=== PATIENT | female | born 1955 | race Caucasian/White ===

== ENCOUNTER 2016-11-01 07:23 | Observation (INO) | payer MEDICARE, OTHER ==
--- NOTE | ~2016-11-01 | HP ---
History And Physical [address] [place]. [address] NAME: TAWANA ESPINOSA : 59 STATUS : ADM IN [facility]#: [id number] AGE: 60 ADM/REG DATE : 11/01/16 MR#: [id number] REPORT SERV DATE: 11/01/16 DICTATED BY: SANIYA SERVIN DATE: 11/01/16 REPORT STATUS : Draft TRANSCRIBED BY: ROSEMARY DATE: 11/01/16 DATE OF ADMISSION: 11/01/2016 ADMITTING DIAGNOSIS: Status post PEG placement for observation. HISTORY AND PHYSICAL: Ms. Espinosa is a very pleasant lady with history of oral malignancy who was seen in the office for evaluation of dysphagia. She has been having trouble swallowing because of an oral malignancy, and she is having radiation and chemo. She is having increasing difficulty swallowing and a PEG was placed in today. She is being admitted post PEG for observation. The PEG was placed today without any difficulty. PAST MEDICAL HISTORY: Hypertension, COPD, history of CVA, diabetes, now oral malignancy, also history of coronary artery disease. PAST SURGICAL HISTORY: Include tonsillectomy and removal of adenoids, cholecystectomy, section, hysterectomy, and placement of cardiac stents. HOME MEDICATIONS: Afeditab, albuterol, alprazolam, aspirin, atorvastatin, baclofen, Plavix which has been held for 4 days, isosorbide, nitroglycerin, insulin, oxybutynin, propranolol, simvastatin, and Topamax. HABITS: Does not drink alcohol but smokes about a pack a day. REVIEW OF SYSTEMS: Negative other than above. PHYSICAL EXAMINATION: GENERAL: She is a fully alert and oriented lady in no distress with stable vital signs. She is status post PEG placement. LUNGS: Reveal good air entry. No rales or rhonchi. CVS: Normal. ABDOMEN: Somewhat tender from the PEG placement. IMPRESSION: PEG placed in this 60-year-old lady with oral cancer. We will admit for observation, case discussed with hospitalist about medical management, especially diabetes etc. and also with Scott my nurse practitioner who was informed that the patient is in the hospital. ASIYA/ROSEMARY Niesha Servin M.D. History And Physical [address] [facility] [place] [place] [id number] NAME: TAWANA ESPINOSA : [birth year] STATUS : ADM IN PAT#: [id number] AGE: 60 ADM/REG DATE : 11/01/16 MR#: [id number] REPORT SERV DATE: 11/01/16 DICTATED BY: SANIYA SERVIN DATE: 11/01/16 REPORT STATUS : Draft TRANSCRIBED BY: ROSEMARY DATE: 11/01/16 / [id number] CC: Vic Lester MD
--- NOTE | ~2016-11-01 | EGD ---
EGD REPORT [facility] [address] 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 Estimated blood loss: Minimal. Procedure: Pre-Anesthesia Assessment: - ASA Grade Assessment: IV - A patient with severe systemic disease that is a constant threat to life. - Prior to the procedure, a History and Physical was performed, and patient medications and allergies were reviewed. The patient's tolerance of previous anesthesia was also reviewed. The risks and benefits of the procedure and the sedation options and risks were discussed with the patient. All questions were answered, and informed consent was obtained. Prior Anticoagulants: The patient has taken aspirin and Plavix (clopidogrel), last doses were 4 days prior to procedure. After reviewing the risks and benefits, the patient was deemed in satisfactory condition to undergo the procedure. After obtaining informed consent, the endoscope was passed under direct vision. Throughout the procedure, the patient's blood pressure, pulse, and oxygen saturations were monitored continuously. The GIF [id number] was introduced through the mouth, and advanced to the second part of duodenum. The upper GI endoscopy was accomplished without difficulty. The patient tolerated the procedure well. Findings: The examined duodenum was normal. Diffuse severe inflammation characterized by adherent blood, congestion (edema) and erythema was found in the stomach. The cardia and gastric fundus were normal on retroflexion. The examined esophagus was normal. Placement of an externally removable PEG with no T-fasteners was EGD REPORT [address] [place]. [address] NAME: THALIA ESPINOSA : [birth year] STATUS : REG [facility]#: [id number] AGE: 60 ADM/REG DATE : 11/01/16 MR#: [id number] REPORT SERV DATE: 11/01/16 DICTATED BY: SANIYA ERWIN DATE: 11/01/16 REPORT STATUS : Draft TRANSCRIBED BY: [facility] DATE: 11/01/16 successfully completed. The external bumper was at the 3.5 cm marking on the tube. Impression: - Normal examined duodenum. - Gastritis. - Normal esophagus. - An externally removable PEG placement was successfully completed. Recommendation: - Admit the patient to hospital karimi for observation. 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 All rights reserved. The codes documented in this report are preliminary and upon piggery worker review may be revised to meet current compliance requirements. JAIME ERWIN MD 11/01/2016 9:15 AM This report has been signed electronically. Number of Addenda: 0 Note Initiated On: 11/01/2016 8:47 AM Scope Withdrawal Time 0 hours 0 minutes 0 seconds [address] [place] [address]
--- NOTE | ~2016-11-01 | CN ---
Consultation Report [facility] [address] [place]. [address] NAME: TAWANA MORALES : 59 STATUS : ADM IN PAT#: [id number] AGE: 60 ADM/REG DATE : 11/01/16 MR#: [id number] REPORT SERV DATE: 11/01/16 DICTATED BY: CAM DEL RIO DATE: 11/01/16 REPORT STATUS : Draft TRANSCRIBED BY: MODL DATE: 11/01/16 CONSULTATIVE NOTE DATE OF CONSULTATION: REASON FOR ADMISSION: Placement of a PEG tube by Dr. Servin. CHIEF COMPLAINT: "I am here for feeding tube as I will not be able to eat after few weeks of chemotherapy and radiation." HISTORY OF PRESENT ILLNESS: A 60-year-old white female with a history of coronary artery disease, status post PCI with MARBIN to LAD October 2008, type 2 diabetes, hypertension, peripheral vascular disease, tobacco abuse, COPD, bipolar 1, recent diagnosis of oral cancer, and morbid obesity, presented today for Dr. Servin to place an elective PEG tube as the patient is currently receiving chemotherapy and radiation treatment by Dr. Chung and Dr. Zuñiga and will unlikely be able to eat after treatments. The patient is actually admitted under Dr. Mina Servin's service and hospitalist was asked to be consulted to help manage her medical issues and diabetes. The patient tolerated the PEG tube placement very well. She has some minimal complaints of abdominal pain currently. Her CBGs have been excellent. She did have 15 units of her typical 30 units of 70/30 this morning. She has been holding her Plavix for several days prior to surgery, otherwise expects to go home and is doing fairly well. REVIEW OF SYSTEMS: Denies any chest pain or shortness of breath. Positive for abdominal pain. Otherwise 10 point systems reviewed and are negative. PAST MEDICAL HISTORY: Includes diabetes, stroke, history of myocardial infarction, leg claudication, type 2 diabetes, hypertension, COPD, and bipolar 1 disorder. PAST SURGICAL HISTORY: Includes gallbladder surgery, , hysterectomy, cardiac stent, tonsillectomy, adenoidectomy, and cataract removal. FAMILY HISTORY: Negative for lung cancer and thyroid cancer. There is cardiovascular disease in her father. SOCIAL HISTORY: The patient is retired and lives at home. History of cigarette smoking. Denies any alcohol use. Admits to some caffeine. ALLERGIES: SULFA CAUSES BLOOD PRESSURE TO DROP AND CODEINE CAUSES ITCHING. MEDICATIONS: Include Requip; Spiriva; Topamax; nifedipine; fish oil; Zofran; Ditropan; Percocet; Lyrica; Compazine; Inderal; Fentanyl patch; Mucinex; NovoLog 70/30 twice a day; Combivent; Monoket; Asmanex; multivitamin; DuoNeb; Xanax; Liam Aspirin; Lipitor 40 mg at Consultation Report [id number] [place]. [address] NAME: TAWANA MORALES : 59 STATUS : ADM IN PAT#: [id number] AGE: 60 ADM/REG DATE : 11/01/16 MR#: [id number] REPORT SERV DATE: 11/01/16 DICTATED BY: CAM DEL RIO DATE: 11/01/16 REPORT STATUS : Draft TRANSCRIBED BY: ROSEMARY DATE: 11/01/16 bedtime; baclofen; Celexa; and Plavix. PHYSICAL EXAMINATION: VITAL SIGNS: Blood pressure is 182/77, sat 93% on room air, temperature is afebrile, respirations are 16, and pulse is 71. GENERAL: She is in no acute distress. Alert and oriented x3. Very pleasant. HEENT: Normocephalic and atraumatic head. Extraocular muscles intact. Oropharynx is clear. NECK: Supple. No JVD. CARDIAC: Regular rhythm. No murmurs, rubs, or gallops. PULMONARY: Clear to auscultation bilaterally. ABDOMEN: Soft, nontender, and nondistended. Positive bowel sounds. There is a newly minted PEG tube placed. EXTREMITIES: Show no clubbing, cyanosis, or edema. NEUROLOGIC: No focal deficits at this time. SKIN: Warm and dry. PSYCHIATRIC: The patient is cooperative. Mood is appropriate. LAB DATA: Labs show glucose of 110. EGD shows gastritis and an externally removable PEG tube that was placed this morning. IMPRESSION: 1. Oral cancer with next radiation treatment tomorrow. 2. Morbid obesity. 3. Insulin-dependent diabetes. 4. Hypertension. 5. Peripheral arterial disease. 6. Coronary artery disease. 7. COPD without exacerbation. 8. Bipolar 1 disorder. PLAN: The plan is to resume her home medications as ordered by Dr. Servin. We will restart her Plavix starting tomorrow. At this time, let us use a level 2 sliding scale insulin as it is unclear how much intake the patient will actually have in the next 24 hours. We will do Accu-Cheks q.a.c. at bedtime. Thank you again for this consult. GUILHERME/ROSEMARY Cam Del Rio MD Consultation Report [address] [address] NAME: TAWANA MORALES : 59 STATUS : ADM IN PAT#: [id number] AGE: 60 ADM/REG DATE : 11/01/16 MR#: [id number] REPORT SERV DATE: 11/01/16 DICTATED BY: CAM DEL RIO DATE: 11/01/16 REPORT STATUS : Draft TRANSCRIBED BY: ROSEMARY DATE: 11/01/16 / [id number] CC: Vic Lester M.D. Benjamin R Nadeau, MD Marcus Wagner, MD
[~2016-11-01 07:23] MED LIST: AFEDITAB60 MG PO; ALBUTEROL0.083 % INH; ASAB PO; ASMANEX100 INH; CELEXA40 MG PO; CHANTIX1; COMBIVENT RESPIM4 GM INH; COMP10B PO; COREG25 PO; DEPAKOT250 PO; DITROPAN XL15 MG PO; DURA50 TOP; FIORICET OR; FISH-EPA1000 MG PO; GEODON60 MG PO; HALF81 PO; HUMALOGMIX SC; INNOPRAN XL120 MG PO; IRON325 MG PO; KEPPRA1000 MG PO; LIOR10 PO; LIPITOR40 PO; LYRICA100 MG PO; MONOKET PO; MUCINEX600 MG PO; MULTIPLE VIT PO; NIFEDICAL XL60 MG PO; NITROSTAT0.4 MG SL; NORCO1 TAB PO; NOVOPENMIX SC; NYS500UDL PO; PERCOCET 10/3251 TAB PO; PLAVIX PO; PR25 PO; PROTONIX PO; REG PO; REMERON45 MG PO; REQUIP1 PO; ROMYCIN OPH; SPIRIVA INH; SYMBICORT 160/41 INH INH; TOPAMAX50 MG PO; ULTRAM50 PO; XANAX1 MG PO; ZOCOR40 PO; ZOFRAN8 PO
== END 2016-11-02 19:37 | disposition home or self-care (01) ==
LOC: DMU 07:23 → 4SO 11:38
PROVIDERS: Internal Medicine Gastroenterology
PROC: 0DH63UZ Insertion of Feeding Device into Stomach, Percutaneous Approach (ICD-10-PCS; principal; 2016-11-01 08:00)
DX: Z43.1 Encounter for attention to gastrostomy (principal); K29.70 Gastritis, unspecified, without bleeding; I25.10 Atherosclerotic heart disease of native coronary artery without angina pectoris; I25.2 Old myocardial infarction; I73.9 Peripheral vascular disease, unspecified; J44.9 Chronic obstructive pulmonary disease, unspecified; G47.33 Obstructive sleep apnea (adult) (pediatric); N18.9 Chronic kidney disease, unspecified; E11.22 Type 2 diabetes mellitus with diabetic chronic kidney disease; I12.9 Hypertensive chronic kidney disease with stage 1 through stage 4 chronic kidney disease, or unspecified chronic kidney disease; F31.9 Bipolar disorder, unspecified; K21.9 Gastro-esophageal reflux disease without esophagitis; F17.210 Nicotine dependence, cigarettes, uncomplicated; F41.9 Anxiety disorder, unspecified; Z88.2 Allergy status to sulfonamides; Z88.8 Allergy status to other drugs, medicaments and biological substances; Z90.49 Acquired absence of other specified parts of digestive tract; Z98.890 Other specified postprocedural states
CPT/HCPCS: 82962; 94640; A9270-GY; G0378; J0690; J1170

== ENCOUNTER 2016-11-18 18:56 | Inpatient (IN) | payer MEDICARE, OTHER ==
--- NOTE | ~2016-11-18 | CN ---
Consultation Report [facility] [address] [place]. [address] NAME: TAWANA MORALES : 59 STATUS : ADM IN [facility]#: [id number] AGE: 60 ADM/REG DATE : 11/18/16 MR#: [id number] REPORT SERV DATE: 11/19/16 DICTATED BY: DATE: REPORT STATUS : Draft TRANSCRIBED BY: MODL DATE: 11/19/16 NEUROLOGY CONSULTATION DATE OF CONSULTATION: 11/19/2016 REASON FOR CONSULT: Anoxic encephalopathy. HISTORY OF PRESENT ILLNESS: This is a 60-year-old female with recent diagnosis of oral cancer, was noted to collapsed at home require CPR as well as intubation in the emergency department. Post intubation the patient was noted to have persistent hypothermia, required patient to be placed in the prone position. The patient was placed on hypothermia protocol with the patient requiring pressor resuscitation fentanyl as well as paralytics turned off this morning and the patient has not noted to have any spontaneous movement or any purposeful movement at the time of evaluation. No myoclonus was otherwise observed. 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 ALLERGIES: THE PATIENT WAS NOTED TO HAVE ALLERGY TO SULFA MEDICATION AND CODEINE. SOCIAL HISTORY: The patient does have ongoing tobacco usage but no history of drinking or illicit drug usage. FAMILY HISTORY: Significant for breast cancer and colon cancer. REVIEW OF SYSTEMS: Unable to be obtained secondary to her current mental status. MEDICATIONS: At the time of evaluation, her hospital medications consist of aspirin; Brovana; Caltrate; Celexa; Ditropan; DuoNeb; Habitrol; heparin; vancomycin; Lipitor; magnesium; NovoLog; potassium; Plavix; Protonix; Pulmicort; Requip; Solu-Cortef; Solu- Medrol; Topamax; vitamin B12; vitamin D; and Zosyn. The patient is also on Levophed drip at the time of evaluation. PHYSICAL EXAMINATION: VITAL SIGNS: The patient was noted to have T-max of 98.5, heart rate of 51 to 69, respirations of 10 to 18, and blood pressure of 98 to 106 over 56 to 63. GENERAL: The patient is well developed, well nourished, in no acute distress. CARDIOVASCULAR: Examination was unable to be performed. PULMONARY: Clear to auscultation bilaterally. Consultation Report [facility] [address] [address] NAME: TAWANA MORALES : 59 STATUS : ADM IN PAT#: [id number] AGE: 60 ADM/REG DATE : 11/18/16 MR#: [id number] REPORT SERV DATE: 11/19/16 DICTATED BY: DATE: REPORT STATUS : Draft TRANSCRIBED BY: MODL DATE: 11/19/16 NEUROLOGIC: The patient was lying in the prone position, as a result, a neurological examination was difficult to perform. The patient is also currently undergoing hypothermia protocol. Pupil was noted to be minimally reactive. Horizontal eye movement was difficult to observe. The patient somewhat demonstrated no coughing response and was noted to have no spontaneous movement. No withdrawal or grimace or posturing to noxious stimulation. No myoclonus was otherwise observed. DATA: At the time of evaluation, the patient was noted to have white blood cell count of 4.1, hemoglobin of 10.8, hematocrit of 32.5, and platelet count of 113. Chemistry panel: Sodium of 134, potassium of 4.2, chloride 99, bicarb 26, BUN of 39, creatinine of 1.78, glucose of 167, calcium of 8.0, magnesium 2.8, procalcitonin of 127.67, and lactate level 2.7. ABG demonstrated pH of 7.34, pCO2 of 40, PO2 of 77, bicarb of 21.1, and O2 saturation of 94.3. CT scan of the brain was obtained on hospital admission. CT scan of the brain demonstrated posterior fossa cerebellar hypodensity, concern for possible anoxic brain injury. IMPRESSION: Anoxic brain injury. Unable to perform reliable neurological examination secondary to the patient lying in the prone position for respiratory and confusion purposes. The patient is also currently undergoing hypothermia protocol. The patient's sedation as well as paralytics was turned off on the morning of hospital evaluation and the patient so far has not had any spontaneous motor movements. EEG in the morning. We are recommending to continue holding sedation as well as paralytics. When the patient's condition is more stabilize, may consider repeat CT scan of the brain for re-evaluation. RECOMMENDATIONS: 1. EEG in the morning. 2. Hold sedation and paralytics. 3. Prognosis guarded. 4. When the patient's condition is more stabilized, may consider repeat CT scan of the brain for re-evaluation. CCH/MODL Dipak Wagner MD / [id number] CC: Tuan Welch MD
--- NOTE | ~2016-11-18 | OP ---
Record Of Operation [facility] [address] [place]. [address] NAME: TAWANA MORALES : 59 STATUS : ADM IN PAT#: [id number] AGE: 60 ADM/REG DATE : 11/18/16 MR#: [id number] REPORT SERV DATE: 11/19/16 DICTATED BY: TUAN HERNANDEZ DATE: 11/19/16 REPORT STATUS : Draft TRANSCRIBED BY: MODL DATE: 11/19/16 DATE OF PROCEDURE: 11/18/2016 12:00:00 AM PROCEDURE: Central line insertion. PREOPERATIVE DIAGNOSIS: Shock. POSTOPERATIVE DIAGNOSIS: Shock. PROCEDURE NOTE: The patient's left IJ position was visualized with ultrasound, she had a good target, we then prepped and draped the left IJ in standard position. Using ultrasound guidance, we were able to insert the finder needle into the left IJ and instill the guidewire in this space. We then removed the needle and using ultrasound guidance, we noticed that the guidewire was within the left IJ and not in the artery. We then dilated the tract. We then placed the triple-lumen catheter which was already prepped into the site. We had return venous blood from all three ports and this was secured. Postprocedure chest x-ray showed the line in good position and no pneumothorax. ALOKQ/ROSEMARY Tuan Hernandez MD / [id number] CC: Tuan Hernandez MD
--- NOTE | ~2016-11-18 | DS ---
Discharge Summary [id number] [facility] [place]. [address] NAME: TAWANA MORALES : 59 STATUS : DIS IN PAT#: [id number] AGE: 60 ADM/REG DATE : 11/18/16 MR#: [id number] REPORT SERV DATE: 12/29/16 DICTATED BY: SKY HERNANDEZ DATE: 12/28/16 REPORT STATUS : Draft TRANSCRIBED BY: MODL DATE: 12/28/16 ADMISSION DATE: 11/18/2016 DISCHARGE DATE: 11/19/2016 ADMISSION DIAGNOSES: Acute respiratory failure, status post arrest, hyperkalemia, encephalopathy, lactic acidosis, septic shock, diabetes, oral cancer. DISCHARGE DIAGNOSES: Respiratory failure, ARDS, severe atelectasis, cardiac arrest, septic shock, acute kidney injury, coronary artery disease, COPD, . HOSPITAL COURSE: The patient was admitted to the hospital on 11/18/2016, she was seen in the emergency room, and the patient had significant hypoxia with a prolonged arrest of around 40 minutes. The patient was started on hypothermia protocol. In the emergency room, we attempted to get the patient's oxygenation improved, however, she failed APRV, we were able to conduct a CT scan and showed severe dependent consolidation, we moved her up to the intensive care unit and it seems that proning actually help this patient's oxygenation, however, the patient continued to have septic shock, hyperkalemia, and failure to thrive. Neurology was consulted and thought that the patient had an anoxic brain injury. We had multiple family discussions that she had a prolonged pre-hospital arrest and prolonged hypoxia in the emergency room which was not amenable to standard therapy outside of proning. It was noted that the patient had ongoing deterioration after coming up to the intensive care unit, she was seen by Dr. Doshi and the patient had worsening hypoxia and hypotension, family felt that no escalation of care is the patient's belief. The patient then had further deterioration and at 2106 hours on 11/19/2016 for the above-named disease processes. HFQ/MODL Sky Hernandez MD / [id number] CC: Sky Hernandez MD
--- NOTE | ~2016-11-18 | HP ---
History And Physical [place] [id number] [facility] [place]. [address] NAME: TAWANA ESPINOSA : 59 STATUS : ADM IN [facility]#: [id number] AGE: 60 ADM/REG DATE : 11/18/16 MR#: [id number] REPORT SERV DATE: 11/19/16 DICTATED BY: TUAN HERNANDEZ DATE: 11/19/16 REPORT STATUS : Draft TRANSCRIBED BY: MODL DATE: 11/19/16 DATE OF ADMISSION: 11/18/2016 ADMISSION DIAGNOSES: Acute respiratory failure, status post arrest; shock; hyperkalemia. CHIEF COMPLAINT: Unable to obtain due to the patient's current medical status. HISTORY OF PRESENT ILLNESS: Mrs. 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 She has been on chemotherapy and radiation since the end of September. Family states that she has been slowly getting weaker. Especially over the last couple of days, they have noticed that she has become weak, her mental status over the last 48 hours has also deteriorated. She has chronic wheezing, however, they have noticed for the last couple of days her wheezing has been worse. She has been having no chest pain. She was at home and they noticed that today she was especially weak. She got up to go to the bathroom and was essentially found down in the bathroom. This was a short time interval as the family was around her. They started CPR immediately and called 911. She had around 15 minutes of CPR until the EMS came. At that time, she received another 15 to 20 minutes of CPR before they had return of spontaneous circulation. They also intubated her in the field and brought her to the emergency room. Shortly after coming to the emergency room, it was noted that she was significantly hyperkalemic and bradycardic. This was treated medically, and she had return of a tachycardic heart rate of around 105. I was then called, and the patient was seen in the emergency room. She was getting resuscitated with regard to life support and adjustment of her ventilator as she was acidotic upon my arrival. We placed a central line and discussed the case with the family. Around one hour later as she was waiting for an ICU bed, I received a phone call that the patient's oxygenation has deteriorated. At that time, it was noted early on admission even with 100% FiO2, the patient's oxygen saturation at that time was around 89. However, on the blood gas, it was 76. We tried APRV, however, the RT staff switch her to pressure control ventilation as her oxygen saturations dropped into the 50s. We then attempted pressure control ventilation; however, her oxygen saturation dropped into the 30s. We then switched to APRV, we had family discussions as her oxygen saturation was 30% on the monitor. We then noticed that she was significantly cyanotic, as there has been an acute change, we took her to the CT scan in which we did not find a pulmonary embolus. Our concern is that she had a major pulmonary embolus. She had bilateral aspiration appearing pneumonia. We then transferred her to the intensive care unit, and was promptly placed on prone position. Hemodynamically, the patient is on pressors, we started Solu-Cortef as she has been on chemotherapy and concern for recent prednisone administration. The family has been updated as she has been quite ill with resuscitative efforts, hypoxia, hypotension, and acidosis. We also had a long discussion of whether to go forward with hypothermia protocol. In an attempt to give her the best chance of neurologic recovery, it was felt that we will give her a chance with hypothermia protocol. The family has all been updated to the grave situation in that she has essentially not had a quick rebound of her vital signs despite maximum life support. 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 [address] NAME: TAWANA ESPINOSA : 59 STATUS : ADM IN [facility]#: [id number] AGE: 60 ADM/REG DATE : 11/18/16 MR#: [id number] REPORT SERV DATE: 11/19/16 DICTATED BY: TUAN HERNANDEZ DATE: 11/19/16 REPORT STATUS : Draft TRANSCRIBED BY: MODCharles DATE: 11/19/16 status post stent; coronary artery disease, status post stent; history of deep vein thromboses; history of seizure disorder. MEDICATIONS: Family could not remember the medications, currently pharmacy is obtaining those. ALLERGIES: THE PATIENT IS ALLERGIC TO SULFA, CODEINE WHICH CAUSES ITCHING. SOCIAL HISTORY: The patient lives with her son, she has been smoking since her teenage years and continues to smoke. Family states that no one will be able to get her to stop smoking. She is not drinking and does not use any illicit drug use. FAMILY HISTORY: The patient's mother had breast cancer, father had colon cancer, other sister has had colon cancer. Other family members with cancer history too. REVIEW OF SYSTEMS: Unable to obtain review of systems due to the patient's current medical status. PHYSICAL EXAMINATION: VITAL SIGNS: Currently, the patient is hypothermic due to hypothermia protocol, heart rate initially was bradycardic, went up to 105, now currently around 63. Oxygen saturation, currently oxygen saturation is 46%. Blood pressure currently systolic greater than 100, on Levophed. GENERAL: The patient is acutely ill, cyanotic appearing. HEENT: No mediastinal lymphadenopathy. PULMONARY: Decreased breath sounds bilaterally, and significant wheezing bilaterally. CARDIAC: Regular rate, no murmurs, distant heart sounds. ABDOMEN: The patient has a PEG tube, no bowel sounds, abdomen is not distended. EXTREMITIES: No lower extremity edema, peripheral cyanosis is noted, pulses are thready. Capillary refill is not adequate. LABORATORY EXAMINATION: White blood cell count 4.9, hemoglobin 8.5, platelet count 118, INR 1.2, initial potassium was 7.2, current potassium is 5.5. Creatinine 1.66, BUN 29, troponin 0.22, arterial blood gas initially showed significant acidosis which is now improved from a hypercapnia stand point, however, hypoxia has worsened. Urinalysis shows a significant UTI. IMAGING DATA: Initial chest x-ray shows bilateral infiltrates, cardiomegaly. CT scan of the lungs show no significant pulmonary emboli, however, there is a striking bilateral consolidation and small right pleural effusion. She is perfusing her pneumonia and atelectasis. ASSESSMENT AND PLAN: Mrs. Espinosa is an unfortunate 60-year-old female with a past medical history noted above, who presented after an arrest, clearly has encephalopathy, she has a recent cancer history, she has been getting aggressive life support and in the emergency room has had continuous decline. Upon transferring her to the intensive care unit, she had significant worsening in her hypoxia. Current problems are below: 1. Status post arrest: At this moment in time, it is unclear exactly which her arrest was, History And Physical [place] [id number] [facility] [place]. [address] NAME: TAWANA ESPINOSA : 59 STATUS : ADM IN PAT#: [id number] AGE: 60 ADM/REG DATE : 11/18/16 MR#: [id number] REPORT SERV DATE: 11/19/16 DICTATED BY: TUAN HERNANDEZ DATE: 11/19/16 REPORT STATUS : Draft TRANSCRIBED BY: MODL DATE: 11/19/16 she was down for at least 40 minutes prior to having return of spontaneous circulation. After long discussion with the family, we are starting hypothermia protocol. EKG shows no findings of ischemia, there is a mild troponin elevation. We will check a CK level to make sure there is no rhabdomyolysis and a urine drug screen. 2. Encephalopathy: The patient does have a history of seizures, however, currently no seizure activity is noted, family states that she has not had any seizures in quite some time. This is most likely an anoxic brain injury. CT scan of the brain was obtained in the emergency room. At this moment in time, we will have Neurology evaluate the patient in the morning. 3. Hypoxic respiratory failure: This is secondary to bilateral lower lobe infiltrates which are dense consolidation, most likely aspiration. She is on APRV, oxygenation has continued to decline. There was about 45 minutes of severe hypoxia in the emergency room in which we attempted APRV, had family discussions, and attempted to stabilize the patient to get her to the CT scan. At this moment in time, she has been started on azithromycin and Rocephin. Again, this looks more of an aspiration type rather than a primary pneumonia. We will continue mechanical ventilation and prone ventilation. 4. Hyperkalemia: This may be the initial inciting event which made the patient collapse, go into an arrest, and get aspiration. Family states that she has been having problems with hyperkalemia in the past. They do not exactly know what this is all about. However, her kidney function is mildly worse, however, her hyperkalemia is out of the proportion to the degree of which she has kidney failure. At this moment in time, the patient is getting frequent BMP check, IV fluids. 5. Lactic acidosis and shock: Unclear of the etiology, potentially hyperkalemia and a urinary tract infection. We will check a cortisol, we have started her on Solu-Cortef, and the patient is currently on Levophed. 6. Septic shock: The patient clearly has an aspiration pneumonia, urinary tract infection, we will attempt to obtain cultures, have started her on Rocephin and azithromycin, will check a flu test, strep pneumonia and Legionella. 7. Diabetes: We will start insulin sliding scale, continue home medications. 8. Chronic obstructive pulmonary disease: We will continue bronchodilator protocol. 9. Oral cancer: Family states that this is an aggressive tumor, we will notify Hematology/Oncology, the patient is most likely not a current chemo candidate until she has improvement in her overall status. 10.FEN: At this moment in time, the patient is n.p.o. 11.Goals of care: We had multiple goals of care discussions with the family, at this moment in time, they would like to give her a chance, however, if she were to have another arrest, family felt that it was not within the patient's best interest to undergo a resuscitative effort. They are aware of the worsening of her condition despite medical therapy. 12.Critical care time: 120 minutes, this is in addition to the time of procedures. HFQ/ROSEMARY Tuan Hernandez MD History And Physical [address] [address] NAME: TAWANA ESPINOSA : 59 STATUS : ADM IN [facility]#: [id number] AGE: 60 ADM/REG DATE : 11/18/16 MR#: [id number] REPORT SERV DATE: 11/19/16 DICTATED BY: TUAN HERNANDEZ DATE: 11/19/16 REPORT STATUS : Draft TRANSCRIBED BY: MODL DATE: 11/19/16 / [id number] CC: Tuan Hernandez MD
[2016-11-18 19:17] LABS: BE (BASE EXCESS) -6.7 MEQ/L (0 +/- 2.5); HCO3 (ACTUAL BICARBONATE) 21.8 MEQ/L (23-27); HEMOBLOGIN CONTENT 9.1 G/DL (12-16); INSTRUMENT SERIAL # 8087; METHEMOGLOBIN 0.3 % (0-3); MODE CMV; O2 CONTENT 9.5 VOL% (18-24); PCO2 (CO2 TENSION) 61 MMHG (35-45); PO2 (O2 TENSION) 49 MMHG (79-93); SAMPLE Arterial; TIDAL VOLUME 500 ML; pH 7.17 (7.37-7.43)
[2016-11-18 19:53] LABS: BASOPHILS 0.2 %; BASOPHILS ABSOLUTE 0.01 10/3/uL (0.0-0.16); EOSINOPHILS 0 %; IMMATURE GRANULOCYTES 0.4 %; LYMPHOCYTES ABSOLUTE 0.44 10/3/uL (0.67-4.30); MEAN CORPUS HGB CONC 32.2 g/dL (32.0-36.0); MEAN CORPUSCULAR HEMOGLOB 31.5 pg (26.0-34.0); MEAN CORPUSCULAR VOLUME 97.8 fL (80-100); MEAN PLATELET VOLUME 9.2 fL (9.2-13.0); MONOCYTES 0.4 %; MONOCYTES ABSOLUTE 0.02 10/3/uL (0.21-1.20); NEUTROPHILS ABSOLUTE 4.41 10/3/uL (2.02-8.40); RBC DISTRIBUTION WIDTH 16.5 % (12.0-16.0)
[2016-11-18 19:58] LABS: ER CBC TAT 0 Hrs 11 Mins; HEMATOCRIT 26.4 % (36.0-48.0); HEMOGLOBIN 8.5 g/dL (12.0-16.0); IMMATURE GRANULOCYTES ABSOLUTE 0.02 10/3/uL (0.0-0.11); MANUAL DIFF NO %; PLATELET COUNT 118 10/3/uL (150-400); WHITE BLOOD CELLS 4.9 10/3/uL (4.5-10.5)
[2016-11-18 20:01] LABS: ASCORBIC ACID (UR NOT ORDER) 40 (NEG); BILIRUBIN, URINE NEGATIVE (NEG); ER URINALYSIS TAT 0 Hrs 00 Mins; KETONE, URINE NEGATIVE (NEG); LEUKOCYTE ESTERASE(NOT OR LARGE (NEG); NITRITE (URINE) NEG (NEG)
[2016-11-18 20:04] LABS: WBC (NOT ORDERED) (RFLEX) > 182 (0-5)
[2016-11-18 20:10] LABS: CO2 (CARBON DIOXIDE) 24 MMOL/L (24-34); CREATININE 1.66 MG/DL (0.55-1.02); GFR AFRICAN AMERICAN 39 ML/MIN (>=60); GFR NON AFRICAN AMERICAN 34 ML/MIN (>=60); POTASSIUM, SERUM 5.5 MMOL/L (3.5-5.3)
[2016-11-18 20:11] LABS: BUN (BLOOD UREA NITROGEN) 29 MG/DL (6-23); CALCIUM, SERUM 7.7 MG/DL (8.5-10.4); CHEST PAIN PROFILE TAT 0 Hrs 24 Mins; CHLORIDE, SERUM 94 MMOL/L (96-112); GLUCOSE, SERUM 307 MG/DL (60-99); SODIUM, SERUM 131 MMOL/L (135-148); TROPONIN I 0.09 NG/ML (<0.05)
[2016-11-18 20:20] LABS: ANISOCYTOSIS 1+ (5-10/OIF) (0-5/OIF); BAND NEUTROPHILS 1 %; ER DIFF TAT 0 Hrs 33 Mins; LYMPHOCYTES 7 %; LYMPHOCYTES ABSOLUTE (CALC) 0.34 10/3/uL (0.67-4.30); NEUTROPHILS ABSOLUTE (CALC) 4.56 10/3/uL (2.02-8.40); SEGMENTED NEUTROPHIL (0) 92 %; TOTAL NUCLEATED CELLS 100
[2016-11-18 20:22] LABS: PLATELET ESTIMATE SLT DEC (ADEQUATE)
[2016-11-18 20:23] LABS: OVALOCYTES 1+ (3-10/OIF) (0-2/OIF)
[2016-11-18 20:24] LABS: POIKILOCYTOSIS 1+ (5-10/OIF) (0-5/OIF)
[2016-11-18] MEDS ORDERED: NITROSTAT0.4 MG SL (20:42)
[2016-11-18] MEDS ORDERED: NOVOLOGMIX SC ×2 (20:45)
[2016-11-18] MEDS ORDERED: NOVOLOG SC (20:45)
[2016-11-18] MEDS ORDERED: GAVISCON LIQUID PO (20:47)
[2016-11-18] MEDS ORDERED: CYANO1000T PO (20:47)
[2016-11-18] MEDS ORDERED: VITAMIN D1000 UNI1 PO (20:48)
[2016-11-18] MEDS ORDERED: MAGOX4 PO (20:48)
[2016-11-18] MEDS ORDERED: BALANCED B PO (20:48)
[2016-11-18] MEDS ORDERED: CALTRAT600 PO (20:48)
[2016-11-18] MEDS ORDERED: T PO (20:49)
[2016-11-18] MEDS ORDERED: PROVHFA INH (20:49)
[2016-11-18 20:59] LABS: INTERNATIONAL NORMAL RATI 1.2 UNITS (-); PARTIAL THROMBO TIME 31.1 SEC (22.5-37.2)
[2016-11-18 21:00] LABS: PROTIME (NOT ORD) 14.8 SEC (12.0-14.5)
[2016-11-18 21:47] LABS: INFLUENZA A SCREEN NEGATIVE (NEGATIVE); INFLUENZA B SCREEN NEGATIVE (NEGATIVE)
[2016-11-18 22:36] LABS: ALLENS TEST Pos; BE (BASE EXCESS) -1.2 MEQ/L (0 +/- 2.5); CARBOXYHEMOGLOBIN 2.2 % (0-3); HCO3 (ACTUAL BICARBONATE) 26.4 MEQ/L (23-27); HEMOBLOGIN CONTENT 11.1 G/DL (12-16); INSTRUMENT SERIAL # 8087; METHEMOGLOBIN 0.3 % (0-3); MODE PCV; O2 CONTENT 11.2 VOL% (18-24); OPERATOR ID 32193; PCO2 (CO2 TENSION) 58 MMHG (35-45); PO2 (O2 TENSION) 43 MMHG (79-93); PRESSURE SUPPORT 30 cm.H2O; SAMPLE Arterial; pH 7.27 (7.37-7.43)
[2016-11-19 00:23] LABS: BE (BASE EXCESS) -4.2 MEQ/L (0 +/- 2.5); HCO3 (ACTUAL BICARBONATE) 20.7 MEQ/L (23-27); INSTRUMENT SERIAL # 35151; PCO2 (CO2 TENSION) 37 MMHG (35-45); PO2 (O2 TENSION) 37 MMHG (79-93); pH 7.36 (7.37-7.43)
[2016-11-19 00:24] LABS: ALLENS TEST Pos; HEMOBLOGIN CONTENT 10.6 G/DL (12-16); MODE APRV; O2 CONTENT 10.4 VOL% (18-24); OPERATOR ID 35190; SAMPLE Arterial
[2016-11-19 02:33] LABS: MEAN CORPUS HGB CONC 33.5 g/dL (32.0-36.0); MEAN CORPUSCULAR HEMOGLOB 31.5 pg (26.0-34.0); MEAN PLATELET VOLUME 9.3 fL (9.2-13.0); NUCLEATED RED BLOOD CELLS 1.2 /100WBC (0-0); PLATELET COUNT 121 10/3/uL (150-400)
[2016-11-19 02:36] LABS: HEMOGLOBIN 10.4 g/dL (12.0-16.0); MANUAL DIFF YES %; MEAN CORPUSCULAR VOLUME 93.9 fL (80-100); WHITE BLOOD CELLS 1.6 10/3/uL (4.5-10.5)
[2016-11-19 02:44] LABS: A/G RATIO 0.6 (0.7-1.9); ALBUMIN 1.9 G/DL (3.5-5.0); ALKALINE PHOSPHATASE 211 U/L (45-117); CALCIUM, SERUM 7.8 MG/DL (8.5-10.4); CHLORIDE, SERUM 96 MMOL/L (96-112); CO2 (CARBON DIOXIDE) 26 MMOL/L (24-34); CREATININE 1.64 MG/DL (0.55-1.02); GFR AFRICAN AMERICAN 40 ML/MIN (>=60); GFR NON AFRICAN AMERICAN 34 ML/MIN (>=60); GLOBULIN 3.4 G/DL (2.5-4.1); PHOSPHORUS, SERUM 3.6 MG/DL (2.5-4.5); SGOT(AST) 195 U/L (5-40); SGPT(ALT) 196 U/L (5-65); SODIUM, SERUM 134 MMOL/L (135-148); TOTAL BILIRUBIN 0.6 MG/DL (0-1.2); TOTAL PROTEIN 5.3 G/DL (6.0-8.5)
[2016-11-19 02:45] LABS: BUN (BLOOD UREA NITROGEN) 36 MG/DL (6-23); GLUCOSE, SERUM 205 MG/DL (60-99); POTASSIUM, SERUM 4.1 MMOL/L (3.5-5.3)
[2016-11-19 02:46] LABS: TROPONIN I 0.38 NG/ML (<0.05)
[2016-11-19 02:54] LABS: LYMPHOCYTES 10 %; LYMPHOCYTES ABSOLUTE (CALC) 0.16 10/3/uL (0.67-4.30); MONOCYTES 1 %; NEUTROPHILS ABSOLUTE (CALC) 1.44 10/3/uL (2.02-8.40); TOTAL NUCLEATED CELLS 10
[2016-11-19 02:55] LABS: BAND NEUTROPHILS 9 %; PLATELET ESTIMATE SLT DEC (ADEQUATE); SEGMENTED NEUTROPHIL (0) 80 %
[2016-11-19 02:58] LABS: RBC MORPHOLOGY NORM (NORMAL)
[2016-11-19 03:05] LABS: PROCALCITONIN 27.67 ng/mL (<0.5)
[2016-11-19 03:53] LABS: ALLENS TEST Pos; BE (BASE EXCESS) -1.7 MEQ/L (0 +/- 2.5); CARBOXYHEMOGLOBIN 0.6 % (0-3); HCO3 (ACTUAL BICARBONATE) 23.9 MEQ/L (23-27); HEMOBLOGIN CONTENT 11.2 G/DL (12-16); INSTRUMENT SERIAL # 35151; METHEMOGLOBIN 0.3 % (0-3); MODE APRV; O2 CONTENT 13.4 VOL% (18-24); OPERATOR ID 23712; PCO2 (CO2 TENSION) 44 MMHG (35-45); PO2 (O2 TENSION) 53 MMHG (79-93); SAMPLE Arterial; pH 7.36 (7.37-7.43)
[2016-11-19 08:27] LABS: CPK 301 U/L (0-200)
[2016-11-19 08:39] LABS: AMPHETAMINES (NOT ORD) NEG (NEG); BARBITURATES (NOT ORDERED NEG (NEG); BENZODIAZEPINES (NOT ORD) NEG (NEG); CANNABINOIDS (THC) NEG (NEG); COCAINE (NOT ORDERED) NEG (NEG); OPIATES POS (NEG); PHENCYCLIDINE(PCP) NEG (NEG); TRICYCLICS NEG (NEG)
[2016-11-19 10:14] LABS: HEMATOCRIT 32.5 % (36.0-48.0); HEMOGLOBIN 10.8 g/dL (12.0-16.0); MEAN CORPUS HGB CONC 33.2 g/dL (32.0-36.0); MEAN CORPUSCULAR HEMOGLOB 30.6 pg (26.0-34.0); MEAN CORPUSCULAR VOLUME 92.1 fL (80-100); MEAN PLATELET VOLUME 9.4 fL (9.2-13.0); PLATELET COUNT 113 10/3/uL (150-400); RBC DISTRIBUTION WIDTH 16.2 % (12.0-16.0); RED CELL COUNT 3.53 10/6/uL (4.0-5.6)
[2016-11-19 10:15] LABS: BUN (BLOOD UREA NITROGEN) 39 MG/DL (6-23); CHLORIDE, SERUM 99 MMOL/L (96-112); CO2 (CARBON DIOXIDE) 26 MMOL/L (24-34); CREATININE 1.78 MG/DL (0.55-1.02); GFR AFRICAN AMERICAN 36 ML/MIN (>=60); GFR NON AFRICAN AMERICAN 31 ML/MIN (>=60); GLUCOSE, SERUM 167 MG/DL (60-99); MANUAL DIFF YES %; PHOSPHORUS, SERUM 5.2 MG/DL (2.5-4.5); POTASSIUM, SERUM 4.2 MMOL/L (3.5-5.3); SODIUM, SERUM 134 MMOL/L (135-148); WHITE BLOOD CELLS 1.1 10/3/uL (4.5-10.5)
[2016-11-19 10:22] LABS: BAND NEUTROPHILS 10 %; LYMPHOCYTES 12 %; LYMPHOCYTES ABSOLUTE (CALC) 0.13 10/3/uL (0.67-4.30); MONOCYTES 8 %; MONOCYTES ABSOLUTE (CALC) 0.09 10/3/uL (0.21-1.20); NEUTROPHILS ABSOLUTE (CALC) 0.88 10/3/uL (2.02-8.40); PLATELET ESTIMATE SLT DEC (ADEQUATE); RBC MORPHOLOGY NORM (NORMAL); SEGMENTED NEUTROPHIL (0) 70 %; TOTAL NUCLEATED CELLS 100
[2016-11-19 11:23] LABS: ASCORBIC ACID (UR NOT ORDER) NEG (NEG); BILIRUBIN, URINE NEGATIVE (NEG); KETONE, URINE NEGATIVE (NEG); LEUKOCYTE ESTERASE(NOT OR SMALL (NEG); WBC (NOT ORDERED) (RFLEX) 34 (0-5)
[2016-11-19 13:52] LABS: BE (BASE EXCESS) -4.2 MEQ/L (0 +/- 2.5); CARBOXYHEMOGLOBIN 0.4 % (0-3); HCO3 (ACTUAL BICARBONATE) 21.1 MEQ/L (23-27); HEMOBLOGIN CONTENT 11.1 G/DL (12-16); INSTRUMENT SERIAL # 35151; METHEMOGLOBIN 0.3 % (0-3); MODE APRV; O2 CONTENT 14.7 VOL% (18-24); OPERATOR ID 32199; PCO2 (CO2 TENSION) 40 MMHG (35-45); PO2 (O2 TENSION) 77 MMHG (79-93); SAMPLE Arterial; pH 7.34 (7.37-7.43)
[2016-11-19 13:53] LABS: ALLENS TEST Pos
[2016-11-19 15:59] LABS: BASOPHILS 0 %; EOSINOPHILS 0.6 %; EOSINOPHILS ABSOLUTE 0.01 10/3/uL (0.0-0.53); HEMATOCRIT 32.3 % (36.0-48.0); HEMOGLOBIN 11.1 g/dL (12.0-16.0); IMMATURE GRANULOCYTES 1.2 %; IMMATURE GRANULOCYTES ABSOLUTE 0.02 10/3/uL (0.0-0.11); LYMPHOCYTES 8.4 %; LYMPHOCYTES ABSOLUTE 0.14 10/3/uL (0.67-4.30); MEAN CORPUS HGB CONC 34.4 g/dL (32.0-36.0); MEAN CORPUSCULAR HEMOGLOB 31.6 pg (26.0-34.0); MEAN PLATELET VOLUME 9.6 fL (9.2-13.0); MONOCYTES 6.6 %; MONOCYTES ABSOLUTE 0.11 10/3/uL (0.21-1.20); NEUTROPHILS 83.2 %; NEUTROPHILS ABSOLUTE 1.39 10/3/uL (2.02-8.40); PLATELET COUNT 89 10/3/uL (150-400); RED CELL COUNT 3.51 10/6/uL (4.0-5.6)
[2016-11-19 16:00] LABS: MANUAL DIFF NO %; WHITE BLOOD CELLS 1.7 10/3/uL (4.5-10.5)
[2016-11-19 16:08] LABS: BUN (BLOOD UREA NITROGEN) 39 MG/DL (6-23); CHLORIDE, SERUM 96 MMOL/L (96-112); CO2 (CARBON DIOXIDE) 24 MMOL/L (24-34); CREATININE 1.76 MG/DL (0.55-1.02); GFR AFRICAN AMERICAN 36 ML/MIN (>=60); GFR NON AFRICAN AMERICAN 31 ML/MIN (>=60); GLUCOSE, SERUM 160 MG/DL (60-99); PHOSPHORUS, SERUM 5.3 MG/DL (2.5-4.5); POTASSIUM, SERUM 4.3 MMOL/L (3.5-5.3); SODIUM, SERUM 133 MMOL/L (135-148)
[2016-11-19 16:24] LABS: ANISOCYTOSIS 1+ (5-10/OIF) (0-5/OIF); BAND NEUTROPHILS 14 %; LYMPHOCYTES 14 %; LYMPHOCYTES ABSOLUTE (CALC) 0.24 10/3/uL (0.67-4.30); MACROCYTES 1+ (5-10/OIF) (0-5/OIF); MICROCYTES 1+ (5-10/OIF) (0-5/OIF); MONOCYTES 7 %; MONOCYTES ABSOLUTE (CALC) 0.12 10/3/uL (0.21-1.20); NEUTROPHILS ABSOLUTE (CALC) 1.34 10/3/uL (2.02-8.40); OVALOCYTES 1+ (3-10/OIF) (0-2/OIF); PLATELET ESTIMATE DEC (ADEQUATE); SEGMENTED NEUTROPHIL (0) 65 %; TOTAL NUCLEATED CELLS 100
[2016-11-19 18:30] LABS: BE (BASE EXCESS) -5.9 MEQ/L (0 +/- 2.5); CARBOXYHEMOGLOBIN 0.5 % (0-3); HCO3 (ACTUAL BICARBONATE) 21.6 MEQ/L (23-27); HEMOBLOGIN CONTENT 10.9 G/DL (12-16); INSTRUMENT SERIAL # 35151; METHEMOGLOBIN 0.3 % (0-3); O2 CONTENT 9.3 VOL% (18-24); PCO2 (CO2 TENSION) 52 MMHG (35-45); PO2 (O2 TENSION) 38 MMHG (79-93); SAMPLE Arterial; pH 7.24 (7.37-7.43)
== END 2016-11-19 21:06 | disposition expired | DRG 871 ==
LOC: ER 18:56 → CCU 21:08
PROVIDERS: Emergency Medicine; Internal Medicine Critical Care Medicine; Internal Medicine Pulmonary Disease
PROC: 5A1945Z Respiratory Ventilation, 24-96 Consecutive Hours (ICD-10-PCS; principal; 2016-11-18)
PROC: 05HM33Z Insertion of Infusion Device into Right Internal Jugular Vein, Percutaneous Approach (ICD-10-PCS; 2016-11-18)
PROC: B543ZZA Ultrasonography of Right Jugular Veins, Guidance (ICD-10-PCS; 2016-11-18)
DX: A41.9 Sepsis, unspecified organism (principal); J96.01 Acute respiratory failure with hypoxia; I46.9 Cardiac arrest, cause unspecified; R65.21 Severe sepsis with septic shock; J69.0 Pneumonitis due to inhalation of food and vomit; G93.1 Anoxic brain damage, not elsewhere classified; E87.2 Acidosis; N39.0 Urinary tract infection, site not specified; J44.9 Chronic obstructive pulmonary disease, unspecified; E87.5 Hyperkalemia; R00.1 Bradycardia, unspecified; E11.9 Type 2 diabetes mellitus without complications; N18.9 Chronic kidney disease, unspecified; I73.9 Peripheral vascular disease, unspecified; I25.10 Atherosclerotic heart disease of native coronary artery without angina pectoris; G40.909 Epilepsy, unspecified, not intractable, without status epilepticus; F17.210 Nicotine dependence, cigarettes, uncomplicated; Z88.2 Allergy status to sulfonamides; Z88.5 Allergy status to narcotic agent; Z95.5 Presence of coronary angioplasty implant and graft; Z86.73 Personal history of transient ischemic attack (TIA), and cerebral infarction without residual deficits; Z86.718 Personal history of other venous thrombosis and embolism; Z80.0 Family history of malignant neoplasm of digestive organs; Z80.3 Family history of malignant neoplasm of breast; C06.0 Malignant neoplasm of cheek mucosa; R51 Headache; I25.2 Old myocardial infarction; Z90.49 Acquired absence of other specified parts of digestive tract; Z90.89 Acquired absence of other organs
CPT/HCPCS: 31720; 36600; 70450; 71010; 71275; 77336; 77386; 80048; 80053; 80069; 80305; 81001; 82330; 82533; 82550; 82803; 82805; 82947; 82962; 83605; 83735; 84100; 84132; 84145; 84295; 84484; 85014; 85025; 85610; 85730; 87040; 87070; 87077; 87086; 87150; 87186; 87205; 87449; 87641; 87804; 92950; 93005; 94002; 94003; 94640; 94770; 96374; 96375; 99291; A9270-GY; C9113; J0456; J0610; J1720; J2543; J2920; J3010; J3370; Q9967